=== PATIENT | male | born 1960 | race African-American/Black ===

== ENCOUNTER 2016-04-30 23:37 | Inpatient (IN) | payer OTHER ==
--- NOTE | ~2016-04-30 | DS ---
Unit #: [id number] #: [id number] Patient: ADAM JEFFRIES [id number] [facility] [address] [place] [address] [id number] I MR#: [id number] NAME: ADAM JEFFRIES ROOM: [facility] Age: 56 Sex: M Admission Date: 04/30/2016 : 1960 Discharge Date: 05/02/2016 Attending Physician: Martin Rivas M.D. Primary Care Physician: Deonte Donis M.D. DISCHARGE SUMMARY REASON FOR ADMISSION Detox. DIAGNOSTIC STUDIES LABORATORY RESULTS: Urine drug screen positive for benzodiazepine, cocaine, and TCA. HOSPITAL COURSE The patient was admitted to inpatient unit on 04/30/2016 and discharged on 05/02/2016. The patient was treated on the inpatient unit with group therapy, individual therapy, and medication management; responded well with the above modalities of treatment. Subsequently, the patient was discharged with a plan to follow up in outpatient program. DISCHARGE MEDICATIONS Seroquel 200 mg at bedtime for mood stabilization. DISCHARGE DIAGNOSES Psychiatric: 1. Mood disorder, not otherwise specified. 2. Alcohol use disorder, severe. 3. Cocaine use disorder, severe, F14.20. 4. Sedative-hypnotic use disorder, F13.20. Secondary diagnosis: Deferred. Medical diagnosis: None. Stressors: Psychosocial stressors. DISCHARGE INSTRUCTIONS The patient is to follow up in outpatient clinic as per director social service. CONDITION ON DISCHARGE The patient was pleasant and cooperative. Denied any psychotic symptom or any suicidal ideation. PROGNOSIS Guarded. DIET AND ACTIVITY As tolerated. Unit #: [id number] #: [id number] Patient: ADAM JEFFRIES Dictated by... Shy Martin/israel TD: 05/02/2016 19:32 JOB #: [id number] DISCHARGE SUMMARY X Martin Rivas MD X DISCHARGE SUMMARY
--- NOTE | ~2016-04-30 | HP ---
Unit #: [id number] #: [id number] Patient: ADAM JEFFRIES [id number] [facility] [address] [place] [address] [id number] MR#: [id number] NAME: ADAM JEFFRIES ROOM: P132 Age: 56 Sex: M Admission Date: 04/30/2016 : 1960 Attending Physician: Martin Rivas M.D. Admitting Physician: Martin Rivas M.D. Primary Care Physician: Deonte Donis M.D. HISTORY AND PHYSICAL HISTORY OF PRESENT ILLNESS Adam is a 56 year old admitted to [address] [place] [address] because of his continued polysubstance abuse which includes cocaine and alcohol. PAST MEDICAL HISTORY 1. Long history of polysubstance abuse. 2. High blood pressure. PAST SURGICAL HISTORY Nothing reported. ALLERGIES No known drug allergies. SOCIAL HISTORY Smokes less than 1 pack per day. Drinks up to a fifth of liquor on a daily basis and admits to history of illicit drug use. FAMILY HISTORY Medically noncontributory. REVIEW OF SYSTEMS CONSTITUTIONAL: No fever or chills. HEENT: Denies any sore throat, ear pain or runny nose. CARDIOVASCULAR: Denies chest pain, irregular heart rhythm or palpitations. CHEST: Denies shortness of breath or cough. No hemoptysis. GASTROINTESTINAL: Denies nausea, vomiting, diarrhea or chronic constipation. ENDOCRINE: Denies history of increased thirst or urination. No recent significant weight loss or gain. GENITOURINARY: Denies dysuria, frequency, or hematuria. SKIN: Denies any rashes. HEMATOLOGIC: Denies history of increased bleeding or bruising. MUSCULOSKELETAL: Denies any hot, swollen joints. No generalized muscle pain. NEUROLOGIC: Denies problems with vision or speech. No frequent, severe headaches. No numbness, tingling or weakness in any extremities. Denies loss of bladder or bowel control. CURRENT MEDICATIONS 1. Seroquel 200 mg q.h.s. 2. Nicotine patch 14 mg daily. 3. HCTZ 25 mg daily. Unit #: [id number] #: [id number] Patient: ADAM JEFFRIES 4. Zestril 20 mg daily. 5. Norvasc 10 mg daily. 6. Milk of Magnesia p.r.n. 7. Maalox p.r.n. 8. Tylenol p.r.n. PHYSICAL EXAMINATION GENERAL: Alert, thin, in no apparent distress. VITAL SIGNS: Blood pressure 132/82, heart rate 82, respirations 16, temperature 98.6. WEIGHT: 150. HEIGHT: 5 feet 11 inches. SKIN: Warm and dry without rash or lesion. HEENT: Normocephalic. TMs not viewed. Oral and nasal passages clear. Conjunctivae clear. PERRLA. EOMs intact. NECK: Supple without lymphadenopathy or thyromegaly. HEART: Regular rate and rhythm without murmur. LUNGS: Clear. ABDOMEN: Soft, nontender. : Not done. EXTREMITIES: No evidence of cyanosis, clubbing or edema. Moves all without focal deficit. NEUROLOGICAL: Grossly within normal limits. Cranial Nerves: II: Visual atkins are intact. III, IV AND : Extraocular movements are intact. Pupils are equal, round and reactive to light. V: Facial sensation is grossly normal. VII: Facial movements and expression are normal. VIII: Auditory acuity grossly intact. IX, X: Uvula is midline. Phonation is normal. XI: Patient shrugs shoulders and turns head normally. XII: Tongue protrudes in the midline. Sensory and Motor Function: Sensory and motor sensation is grossly normal. Motor: moves all extremities well. Coordination: Gait is normal. Deep Tendon Reflexes: Intact. IMPRESSION Psychiatric admission. RECOMMENDATIONS PSYCHIATRIC: Per psychiatrist. MEDICAL: See no contraindications to participate in facility's activities. MEDICAL PROGNOSIS Good. MEDICAL CONDITION Stable. Dictated by... Ernestina Durbin P.A.-C. for Shy Lewis/amber TD: 05/01/2016 20:04 JOB #: [id number] Unit #: [id number] #: [id number] Patient: ADAM JEFFRIES HISTORY AND PHYSICAL X Ernestina Durbin HISTORY AND PHYSICAL
--- NOTE | ~2016-04-30 | PA ---
Unit #: [id number] #: [id number] Patient: ADAM JEFFRIES [id number] [facility] [address] [place] [address] [id number] I MR#: [id number] NAME: ADAM JEFFRIES ROOM: 32 Age: 56 Sex: M Admission Date: 04/30/2016 : 1960 Date of Assessment: 04/30/2016 Attending Physician: Martin Rivas M.D. Admitting Physician: Martin Rivas M.D. Primary Care Physician: Deonte Donis M.D. PSYCHIATRIC ASSESSMENT INFORMANT(S) Patient, reliability fair. Chart, reliability good. CHIEF COMPLAINT Needing detox, hearing voices to kill myself. HISTORY OF PRESENT ILLNESS Mr. Adam Jeffries is a 56-year-old male seen on . The patient was admitted with depressive symptom, alcohol abuse, and cocaine abuse. The patient reported suicidal ideation with a plan, psychotic symptom. The patient reported current suicidal ideation with a plan to overdose on alcohol 106 and injured his head. The patient reported command hallucination telling him to kill himself. The patient reported current alcohol and crack use. Most recent was 04/30/2016. The patient reported relapsing approximately 8 months ago from alcohol. The patient currently drinking 4 ounces of beer daily. The patient reported strained relationship with family member due to substance abuse. The patient has been displaced from house and legal charges due to substance abuse. The patient currently denied any homicidal ideation. Reported increase in agitation with other individuals who do not respect him. The patient needing inpatient admission at this time for (1) ___ reason for psychiatric stabilization. PAST PSYCHIATRIC HISTORY Remarkable for history of previous treatment, inpatient in [place] for chemical dependency in 1999 and 2004; inpatient [facility] 05/2015 and 08/2015 for chemical dependency and suicidal ideation. FAMILY HISTORY No history of any psychiatric illness in the family known at this time. No known history of any abuse. MEDICAL HISTORY Remarkable for hypertension. MEDICATION HISTORY The patient is on lisinopril, Seroquel. ALLERGIES No known drug allergies. SUBSTANCE ABUSE HISTORY The patient reported tobacco use, age of onset 9; alcohol, age of onset 10; crack cocaine, age of onset 29; opiate, age of onset 24; prescription Unit #: [id number] #: [id number] Patient: ADAM JEFFRIES, age of onset 55. The patient reported history of blackout but no history of any IV drug use. No history of any HIV or hepatitis. The patient reported depressed mood, headache, irritability, restlessness, rhinorrhea, sleep problem, or tremors. REVIEW OF SYSTEMS HEENT: Eyes: Clear. Ears, Nose, Mouth, and Throat: Clear. CARDIOVASCULAR/RESPIRATORY: Unremarkable. GI/: Unremarkable. SKIN/LYMPH NODE/NEUROLOGICAL/ENDOCRINE/HEMATOLOGICAL/ALLERGIC/IMMUNOLOGICAL: Unremarkable. MUSCULOSKELETAL: Muscle strength and tone: No atrophy or abnormal movement. Gait normal. MENTAL STATUS EXAMINATION Constitutional: Measurement of vital signs: 97.9, 82, 16, 133/82. Height 5 feet 11 inches. Weight 150 pounds. General Appearance: The patient dressed casually. The patient did not show any facial deformity. Musculoskeletal: Please see above. Psychiatric examination: Description of speech: Regular rate, normal volume. Description of thought process: Goal-directed. Description of association: Intact. Description of abnormal psychotic thinking: The patient denied any hallucination, delusions. Mood lability, substance abuse. Description of the patient's judgment: Concerning everyday activity, poor; social situation, poor; concerning psychiatric condition, poor. The patient currently having suicidal ideation, substance abuse, and hallucination. Complete Mental Status Examination: Oriented in time, place, and person. Recent and remote memory fair. Attention span, concentration fair. Language: Able to name object, repeat phrases. Fund of knowledge: Aware of current events and past history. Vocabulary: Intact. Mood and affect: Sad, dysphoric. Insight and judgment: Fair to poor. ASSETS AND LIABILITIES Assets: The patient articulate. Able to take care of his ADL. Liabilities: History of substance abuse and depression. ADMITTING DIAGNOSES PSYCHIATRIC: Mood disorder, not otherwise specified, F32.9. Alcohol use disorder, severe, F10.20 SECONDARY: Deferred. MEDICAL: Hypertension. STRESSOR: Psychosocial stressor. PSYCHIATRIC PLAN/TREATMENT GOALS/DISCHARGE PLANNING 1. Advised to admit the patient on the inpatient unit. Provide safe, supportive, structured environment. 2. Ordered labs: CBC, CMP, UA, UDS. 3. Advised for the patient to be monitored closely for SP1 precaution and special observation for psychosis. The patient to start with detox protocol, detox monitoring, resume his medication. The patient is on Seroquel 200 mg at bedtime, Vistaril 10 to 20 mg daily, and Norvasc 10 mg daily. The patient to attend all the programming on the inpatient unit including group therapy, individual therapy, psychotherapy if possible. Unit #: [id number] #: [id number] Patient: ADAM JEFFRIES 4. Treatment goal: To attain euthymic mood, gain insight into his problem, learn coping skill. 5. Discharge plan: Plan to stabilize the patient and consider followup in outpatient program. ESTIMATED LENGTH OF STAY 5 days. Dictated by... Shy Martin/herman TD: 05/02/2016 09:31 JOB #: [id number] PSYCHIATRIC ASSESSMENT X Martin Rivas MD X PSYCHIATRIC ASSESSMENT
--- NOTE | ~2016-04-30 | PN ---
Unit #: [id number] #: [id number] Patient: ADAM JEFFRIES [id number] [facility] [address] [place] [address] [id number] I MR#: [id number] NAME: ADAM JEFFRIES ROOM: 32 Age: 56 Sex: M Admission Date: 04/30/2016 : 1960 Attending Physician: Martin Rivas M.D. Admitting Physician: Martin Rivas M.D. Primary Care Physician: Deonte Donis M.D. [facility] PROGRESS NOTES DATE 05/01/2016 DISCUSSION Mr. Adam Jeffries is a 56-year-old male, seen on 05/01/2016. The patient interviewed, chart reviewed, and obtained information from the nursing staff. The patient was compliant and cooperative. Mood sad and dysphoric, flat affect, and guarded. The patient continues to be isolative, guarded. VITAL SIGNS: Temperature 97.6, pulse 82, respirations 16, and blood pressure 171/113. REVIEW OF SYSTEMS Complete review of systems unremarkable. MENTAL STATUS EXAMINATION General appearance: Patient casually dressed. Attention span and concentration, fair. Oriented, place and person. Mood and affect, sad and dysphoric. Speech, monotone. Thought process, concrete. Association, the patient reported having thoughts of harming self and paranoia, withdrawn, isolative. Recent and remote memory, poor. Insight and judgment, poor. DIAGNOSES 1. Mood disorder, NOS. 2. Alcohol use disorder, severe. ASSESSMENT/PLAN Advised to continue with the current medication and therapeutic protocol and if needed consider further adjustment of medication. Dictated by... Shy Martin/lety TD: 05/02/2016 09:54 JOB #: [id number] Unit #: [id number] #: [id number] Patient: ADAM JEFFRIES PROGRESS NOTES X Martin Rivas MD PROGRESS NOTE
[2016-05-01 09:39] LABS: BASOPHIL# 0.1 X10e3 (0-0.3); BASOPHIL% 0.9 % (0-2.5); EOSINOPHIL# 0.2 X10e3 (0-0.7); EOSINOPHIL% 1.9 % (0.0-7.0); HEMATOCRIT 40.1 % (38.0-50.0); HEMOGLOBIN 13.1 gm/dL (13.0-16.0); LYMPHOCYTE% 25.4 % (17.0-45.0); MEAN CELL VOLUME 98.2 FL (83-96); MEAN CORPUSCULAR HEMOGLOBIN 32.1 PG (28-34); MEAN CORPUSCULAR HGB CONC 32.7 g/dL (30-36); MEAN PLATELET VOLUME 7.9 FL (6.5-11.5); MONOCYTE# 0.6 X10e3 (0-1.0); MONOCYTE% 7.6 % (3.0-12.0); NEUTROPHIL# 5.1 X10e3 (1.5-7.1); NEUTROPHIL% 64.2 % (40-75); PLATELET COUNT 244 X10e3 (140-420); RED BLOOD COUNT 4.08 X10e (3.90-5.60)
[2016-05-01 09:47] LABS: ALBUMIN SERUM 3.9 g/dL (3.5-5.0); ALKALINE PHOSPHATASE 73 U/L (32-92); ALT (SGPT) 14 U/L (10-40); AST (SGOT) 20 U/L (10-42); BILIRUBIN,TOTAL 0.5 mg/dL (0.2-2.0); BLOOD UREA NITROGEN 15 mg/dL (9-23); BUN/CREATININE RATIO 11.53; CALCIUM SERUM 9.7 mg/dL (8.4-10.2); CARBON DIOXIDE 31 mmol/L (22-31); CHLORIDE 102 mmol/L (100-111); CREATININE SERUM 1.3 mg/dL (0.6-1.4); GLOM FILT RATE Estimated ABOVE60 mL/min (>60); GLUCOSE FASTING 93 mg/dL (70-110); POTASSIUM 4.2 mmol/L (3.5-5.1); PROTEIN TOTAL SERUM 6.5 g/dL (6.0-8.3); SODIUM 141 mmol/L (135-145)
[2016-05-01 09:48] LABS: DIFF IND NO
== END 2016-05-02 12:40 | disposition home or self-care (01) | DRG 885 ==
LOC: P1S 23:37
PROVIDERS: Psychiatry & Neurology Psychiatry
PROC: HZ2ZZZZ Detoxification Services for Substance Abuse Treatment (ICD-10-PCS; principal; 2016-04-30)
DX: F39 Unspecified mood [affective] disorder (principal); I10 Essential (primary) hypertension; F10.20 Alcohol dependence, uncomplicated
CPT/HCPCS: 80053; 85025

== ENCOUNTER 2016-08-03 09:00 | Inpatient (IN) | payer OTHER ==
--- NOTE | ~2016-08-03 | PN ---
Unit #: [id number] #: [id number] Patient: ADAM JEFFRIES [id number] [facility] [address] [place] [address] [id number] I MR#: [id number] NAME: ADAM JEFFRIES ROOM: P1 Age: 56 Sex: M Admission Date: 08/04/2016 : 1960 Attending Physician: Martin Rivas M.D. Admitting Physician: Martin Rivas M.D. Primary Care Physician: Shy Ford PROGRESS NOTES DATE OF SERVICE: 08/05/2016 DISCUSSION Mr. Adam Jeffries is a 56-year-old male, seen on 08/05/2016. The patient interviewed, chart reviewed, and obtained information from nursing staff. The patient is currently on detox protocol, detox monitoring, withdrawn, isolative, flat affect, sad, dysphoric mood. The patient's vital signs are temperature 98.0, pulse 76, respiratory rate 16, blood pressure 155/108. REVIEW OF SYSTEMS Complete review of systems unremarkable. MENTAL STATUS EXAMINATION General appearance, the patient dressed casually. Attention span and concentration, fair. Oriented in place and person. Mood and affect, sad and depressed. The patient reported having suicidal ideation and hallucination. Recent and remote memory, poor. Insight and judgment, poor. DIAGNOSES 1. Alcohol use disorder, severe. 2. Cocaine use disorder, severe. 3. Mood disorder, not otherwise specified. ASSESSMENT/PLAN Advised to continue with current medication and therapeutic protocol. If needed, consider further adjustment of medication. Dictated by... Shy Martin/israel TD: 08/05/2016 23:31 JOB #: [id number] Unit #: [id number] #: [id number] Patient: ADAM JEFFRIES PROGRESS NOTES Page 1 of 1 X Martin Rivas MD PROGRESS NOTE
--- NOTE | ~2016-08-03 | PN ---
Unit #: [id number] #: [id number] Patient: ADAM JEFFRIES [id number] [facility] [address] [place] [address] [id number] I MR#: [id number] NAME: ADAM JEFFRIES ROOM: P178 Age: 56 Sex: M Admission Date: 08/04/2016 : 1960 Attending Physician: Martin Rivas M.D. Admitting Physician: Martin Rivas M.D. Primary Care Physician: Shy Ford PROGRESS NOTES DATE OF SERVICE: 08/06/2016 DISCUSSION Adam Jeffries is a 56-year-old male, seen on 08/06/2016. The patient interviewed, chart reviewed, and obtained information from nursing staff. The patient reports that he is still having suicidal ideation, sad, depressed, withdrawn, having trouble sleeping, unable to contract for safety today. REVIEW OF SYSTEMS Complete review of systems unremarkable. MENTAL STATUS EXAMINATION General appearance, the patient dressed casually. Attention span and concentration, fair. Oriented in place and person. Mood and affect, sad and depressed. Speech, monotone. Thought process, concrete. The patient reported having passive SI, unable to contract for safety. Denied any homicidal ideation. Recent and remote memory, poor. Insight and judgment, poor. DIAGNOSES Major depressive disorder, recurrent, severe and alcohol use disorder, severe. ASSESSMENT AND PLAN Advised to continue with current medication with a plan to add trazodone 100 mg at bedtime. If needed, consider further adjustment of medication. Dictated by... Shy Martin/israel TD: 08/06/2016 19:56 JOB #: [id number] Unit #: [id number] #: [id number] Patient: ADAM JEFFRIES PROGRESS NOTES Page 1 of 1 X Martin Rivas MD PROGRESS NOTE
--- NOTE | ~2016-08-03 | DS ---
Unit #: [id number] #: [id number] Patient: ADAM JEFFRIES [id number] [facility] [address] [place] [address] [id number] MR#: [id number] NAME: ADAM JEFFRIES ROOM: [facility] Age: 56 Sex: M Admission Date: 08/04/2016 : 1960 Discharge Date: 08/08/2016 Attending Physician: Martin Rivas M.D. Primary Care Physician: Deonte Donis M.D. DISCHARGE SUMMARY REASON FOR ADMISSION Suicidal ideation. DIAGNOSTIC STUDIES LABORATORY RESULTS: Remarkable for creatinine 1.7 and potassium 3.3. HOSPITAL COURSE The patient was admitted to inpatient unit on 08/04/2016 and discharged on 08/08/2016. The patient was treated on the inpatient unit with chemical dependency group, expressive therapy, and structured milieu. The patient was med compliant, also seen by the medical doctor. For abnormal labs, the patient showed improvement. Subsequently, the patient was discharged with a plan to follow up in outpatient program. DISCHARGE MEDICATIONS Seroquel 200 mg at bedtime for mood stabilization, Desyrel 100 mg at bedtime for sleep, Oretic 25 mg at bedtime for hypertension, Zestril 20 mg daily for hypertension, and Mobic 7.5 mg daily for pain. DISCHARGE DIAGNOSES Psychiatric: Major depressive disorder, recurrent, severe, F33.2; psychosis, not otherwise specified, F29.0; alcohol use disorder, F10.20; cocaine use disorder, severe, F14.20. Secondary diagnosis: Deferred. Medical diagnosis: Hypertension. Stressors: Psychosocial stressors. DISCHARGE INSTRUCTIONS The patient to follow up in outpatient clinic as per social media developer. CONDITION ON DISCHARGE The patient was pleasant and cooperative. Denied any psychotic symptom or any suicidal ideation. PROGNOSIS Guarded. DIET AND ACTIVITY As tolerated. Unit #: [id number] #: [id number] Patient: ADAM JEFFRIES Dictated by... Shy Martin/israel TD: 08/08/2016 16:27 JOB #: [id number] DISCHARGE SUMMARY Page 1 of 1 X Martin Rivas MD X DISCHARGE SUMMARY
--- NOTE | ~2016-08-03 | PN ---
Unit #: [id number] #: [id number] Patient: ADAM JEFFRIES [id number] [facility] [address] [place] [address] [id number] I MR#: [id number] NAME: ADAM JEFFRIES ROOM: P178 Age: 56 Sex: M Admission Date: 08/04/2016 : 1960 Attending Physician: Martin Rivas M.D. Admitting Physician: Martin Rivas M.D. Primary Care Physician: Deonte Donis M.D. [facility] PROGRESS NOTES DATE 08/07/2016 DISCUSSION Mr. Adam Jeffries is a 56-year-old male seen on 08/07/2016. Patient interviewed. Chart reviewed. Obtained information from nursing staff. Patient was compliant, cooperative. Mood was sad, dysphoric, flat affect, guarded. Patient denied any thoughts of harming self or others. Vital signs stable. Complete review of system unremarkable. MENTAL STATUS EXAMINATION General appearance, patient dressed casually. Attention span, concentration fair. Oriented in place and person. Mood and affect labile. Speech monotone. Thought process concrete. Patient denied any thoughts of harming self or others but guarded. Recent and remote memory poor. Insight and judgement poor. DIAGNOSES 1. Mood disorder NOS. 2. Alcohol use disorder, severe. 3. Cocaine use disorder, severe. ASSESSMENT/PLAN Advised to continue with current medication and therapeutic protocol. If needed, consider further adjustment of medication. Dictated by... Shy Martin/amber TD: 08/08/2016 16:34 JOB #: [id number] Unit #: [id number] #: [id number] Patient: ADAM JEFFRIES PROGRESS NOTES Page 1 of 1 X Martin Rivas MD X PROGRESS NOTE
--- NOTE | ~2016-08-03 | CO ---
Unit #: [id number] #: [id number] Patient: ADAM JEFFRIES [id number] [place] [address] [id number] I MR#: [id number] NAME: ADAM JEFFRIES ROOM: [facility] Age: 56 Sex: M Admission Date: 08/04/2016 : 1960 Attending Physician: Martin Rivas M.D. Primary Care Physician: Deonte Donis M.D. Consultation Date: 08/04/2016 CONSULTATION REPORT HISTORY OF PRESENT ILLNESS Adam has a history of hypertension and he reports he has not been taking his medications as prescribed at home. He is supposed to be taking Norvasc 10 mg daily and lisinopril/hydrochlorothiazide 20/25 mg daily, but he cannot recall the last time when he used either of these medications. Here, his blood pressures have been 172/108 and 149/102. He denies any headache or chest pain. PHYSICAL EXAMINATION CARDIAC: Regular rate and rhythm. No murmur, gallop, or rub. RESPIRATORY: Clear to auscultation bilaterally. ASSESSMENT AND PLAN Hypertension. We will begin Norvasc 5 mg p.o. daily and lisinopril/hydrochlorothiazide 10/12.5 mg p.o. daily, and add clonidine 0.1 mg p.o. q.12 hours p.r.n. He has a history of cocaine use and because of this, we will start his blood pressure medications back at a low dose and increase as needed. Please notify if blood pressures are consistently greater than 140/90 prior to clonidine. Dictated by... Zohaib Mohan/israel TD: 08/04/2016 17:16 JOB #: [id number] CONSULTATION REPORT Page 1 of 1 X PRATEEK JONES APRN CONSULTATION REPORT
--- NOTE | ~2016-08-03 | HP ---
Unit #: [id number] #: [id number] Patient: ADAM JEFFRIES [id number] [facility] [address] [place] [address] [id number] MR#: [id number] NAME: ADAM JEFFRIES ROOM: P178 Age: 56 Sex: M Admission Date: 08/04/2016 : 1960 Attending Physician: Martin Rivas M.D. Admitting Physician: Martin Rivas M.D. Primary Care Physician: Deonte Donis M.D. HISTORY AND PHYSICAL HISTORY OF PRESENT ILLNESS Adam is a 56-year-old male admitted on 08/04/2016 to [facility] for detox from alcohol. He also was positive for cocaine. PAST MEDICAL HISTORY Hypertension. He is ( injury that required surgical repair after a fall. SOCIAL HISTORY He smokes five to six cigarettes daily, binge alcohol use, denies illegal drug use, but was positive for cocaine. He is currently single and homeless. FAMILY HISTORY . ALLERGIES No known drug allergies. PHYSICAL EXAMINATION GENERAL: Alert, oriented, in no acute distress. VITAL SIGNS: Blood pressure 172/108, heart rate 91, temperature 98.0. HEIGHT: 5 foot 2 inches. SKIN: Warm and dry without rash or lesion. HEENT: Normocephalic. TMs not viewed. Oral and nasal passages clear. Conjunctivae clear. PERRLA. EOMs intact. NECK: Supple without lymphadenopathy or thyromegaly. HEART: Regular rate and rhythm without murmur. LUNGS: Clear. ABDOMEN: Soft, nontender, without masses or hepatosplenomegaly. : Not done. EXTREMITIES: No evidence of cyanosis, clubbing or edema. Moves all without focal deficit. NEUROLOGICAL: Grossly within normal limits. Cranial Nerves: II: Visual atkins are intact. III, IV AND : Extraocular movements are intact. Pupils are equal, round and reactive to light. V: Facial sensation is grossly normal. VII: Facial movements and expression are normal. VIII: Auditory acuity grossly intact. IX, X: Uvula is midline. Phonation is normal. XI: Patient shrugs shoulders and turns head normally. XII: Tongue protrudes in the midline. Sensory and Motor Function: Sensory and motor sensation is grossly normal. Motor: moves all extremities well. Unit #: [id number] #: [id number] Patient: ADAM JEFFRIES Coordination: Gait is normal. Deep Tendon Reflexes: Intact. CURRENT MEDICATIONS Amlodipine and lisinopril/HCTZ. IMPRESSION 1. Psychiatric admission. 2. Hypertension. RECOMMENDATIONS Psychiatric, per psychiatrist. MEDICAL: I see no contraindications to participating in facility's activities. MEDICAL PROGNOSIS Good. MEDICAL CONDITION Stable. Dictated by... Zohaib Mohan/jen TD: 08/05/2016 00:54 JOB #: [id number] HISTORY AND PHYSICAL Page 1 of 1 X PRATEEK JONES APRN X HISTORY AND PHYSICAL
--- NOTE | ~2016-08-03 | PA ---
Unit #: [id number] #: [id number] Patient: ADAM JEFFRIES [id number] [facility] [address] [place] [address] [id number] MR#: [id number] NAME: ADAM JEFFRIES ROOM: [facility] Age: 56 Sex: M Admission Date: 08/04/2016 : 1960 Date of Assessment: Attending Physician: Martin Rivas M.D. Admitting Physician: Martin Rivas M.D. Primary Care Physician: Deonte Donis M.D. PSYCHIATRIC ASSESSMENT INFORMANTS The patient's reliability, fair; chart reliability, good. CHIEF COMPLAINT Suicidal ideation. HISTORY OF PRESENT ILLNESS Mr. Adam Jeffries is a 56-year-old male, presented with the above-mentioned complaint. The patient reported that he tried to drink himself to by drinking 12 16-ounce beers of malt liquor, 2 pills of Seroquel 200, using 2 to 3 g of cocaine. The patient reported hearing voices are telling him that he is not good to kill himself. The patient currently unemployed, reports that he is staying in a custodial house since 01/2016 and reports being asked to leave the custodial house to detox from relapse substances. The patient reports currently homeless, poor support system, sleeping 5 hours, appetite poor, feeling of hopelessness, worthlessness, suicidal ideation. The patient denied any homicidal ideation. The patient has a history of previous treatment at [facility] [address] in 2015, inpatient at [facility] in 2016. Needing inpatient admission at this time for psychiatric stabilization. PAST PSYCHIATRIC HISTORY Remarkable for history of previous treatment inpatient in [place] for chemical dependency, inpatient twice at [facility] in 2015, inpatient at [facility] in 04/2016. FAMILY HISTORY AND SOCIAL HISTORY Poor support system, currently homeless. No history of abuse. No history of any legal charges. MEDICAL HISTORY Remarkable for history of hypertension. Musculoskeletal; muscle strength and tone, no atrophy or abnormal movement. Gait normal. MEDICATION HISTORY None. ALLERGIES No known drug allergies. SUBSTANCE ABUSE HISTORY The patient reported tobacco use, age of onset 9; alcohol, age of onset 10; cannabis abuse, age of onset 10; crack cocaine, age of onset 29. The Unit #: [id number] #: [id number] Patient: ADAM JEFFRIES patient reported longest period of sobriety 8 months, last period of sobriety 04/2016. The patient reported history of blackouts. No history of any HIV, hepatitis, or IV drug use. Reported currently depressed mood, headache, irritability, restlessness, rhinorrhea, sleep problem, tremor. REVIEW OF SYSTEMS HEENT: Eyes, clear. Ears, nose, mouth, and throat; clear. CARDIOVASCULAR: Unremarkable. RESPIRATORY: Unremarkable. GI: Unremarkable. : Unremarkable. SKIN: Unremarkable. LYMPH NODE: Unremarkable. NEUROLOGIC: Unremarkable. ENDOCRINE: Unremarkable. HEMATOLOGIC: Unremarkable. ALLERGIC/IMMUNOLOGIC: Unremarkable. MUSCULOSKELETAL: Muscle strength and tone, no atrophy or abnormal movement. Gait normal. MENTAL STATUS EXAMINATION CONSTITUTIONAL: Measurement of vital signs; temperature 98, pulse 76, respirations 16, oxygen saturation 100%, blood pressure 155/108. Height 5 feet 10 inches, weight 150 pounds. GENERAL APPEARANCE: The patient dressed casually. The patient did not show any facial deformity. MUSCULOSKELETAL: Please see above. PSYCHIATRIC EXAMINATION Description of speech; regular rate, normal volume, normal articulation, coherent. Description of thought process, goal directed. Description of association, intact. Description of abnormal psychotic thinking; the patient denied any hallucination or delusions, suicidal ideation. Denied any homicidal ideation. Psychotic symptom as mentioned above. Description of the patient's judgment; concerning everyday activity, poor. Social situation, poor. Concerning psychiatric condition, poor. Complete mental status examination; oriented in time, place, and person. Recent and remote memory, fair. Attention span and concentration, fair. Language, able to name object and repeat phrases. Fund of knowledge, aware of current event and passive vocabulary intact. Mood and affect, sad and dysphoric. Insight and judgment, fair to poor. ASSETS AND LIABILITIES Assets; the patient articulate, able to take care of his ADL. Liability; history of depression, substance abuse. ADMITTING DIAGNOSES Psychiatric: Major depressive disorder, recurrent, severe, F33.2; psychosis, not otherwise specified, F29.0; alcohol use disorder, severe, F10.20; cocaine use disorder, severe, F14.20. Secondary diagnosis: Deferred. Medical diagnosis: Hypertension. Stressors: Psychosocial stressors. Unit #: [id number] #: [id number] Patient: ADAM JEFFRIES PSYCHIATRIC PLAN AND TREATMENT GOAL 1. Advised to admit the patient on the inpatient unit. Provide safe, supportive, and structured environment. 2. Ordered labs; CBC, CMP, UA, and UDS. 3. Advised to resume home medication. 4. The patient to attend all the programing with group therapy, individual therapy, medication management, chemical dependency group. Treatment goal to attain euthymic mood, gain insight into his problem, and learn coping skills. Also the patient was started on detox protocol, detox monitoring, SP1 precaution. DISCHARGE PLAN Plan to stabilize the patient and consider followup in outpatient program. ESTIMATED LENGTH OF STAY 5 days. Dictated by... Martin Rivas M.D. JOSÉ LUIS/israel TD: 08/05/2016 23:04 JOB #: [id number] PSYCHIATRIC ASSESSMENT Page 1 of 1 X Martin Rivas MD X PSYCHIATRIC ASSESSMENT
== END 2016-08-08 09:46 | disposition home or self-care (01) | DRG 885 ==
LOC: P1E 08-04 13:36
PROC: HZ2ZZZZ Detoxification Services for Substance Abuse Treatment (ICD-10-PCS; principal; 2016-08-04)
DX: F33.2 Major depressive disorder, recurrent severe without psychotic features (principal); F14.20 Cocaine dependence, uncomplicated; F10.20 Alcohol dependence, uncomplicated; F39 Unspecified mood [affective] disorder; Y90.0 Blood alcohol level of less than 20 mg/100 ml

== ENCOUNTER 2016-08-03 11:12 | Emergency (ER) | payer OTHER ==
--- NOTE | ~2016-08-03 | EKG ---
PATIENT: ADAM JEFFRIES UNIT #: [id number] Ventricular Rate: 82 BPM Atrial Rate: 82 BPM P-R Interval: 150 ms QRS Duration: 76 ms Q-T Interval: 378 ms QTC Calculation(Bezet): 441 ms P [place]: 62 degrees Calculated R [place]: 9 degrees Calculated T [place]: -30 degrees Diagnosis Line: Normal sinus rhythm Diagnosis Line: Normal ECG Diagnosis Line: When compared with ECG of 15-SEP-2015 09:52, Diagnosis Line: Nonspecific T wave abnormality no longer evident Diagnosis Line: in Lateral leads Diagnosis Line: Confirmed by ELI OHARA MD ([id number]) on Diagnosis Line: 08/04/2016 11:07:57 AM INTERPRETING MD: LAURA
[2016-08-03 13:23] LABS: ALBUMIN SERUM 4.5 g/dL (3.5-5.0); ALKALINE PHOSPHATASE 88 U/L (32-92); ALT (SGPT) 15 U/L (10-40); AST (SGOT) 23 U/L (10-42); BILIRUBIN, DIRECT 0.1 mg/dL (0.0-0.2); BILIRUBIN,INDIRECT 0.9 mg/dL (0.0-0.9); BLOOD UREA NITROGEN 19 mg/dL (9-23); BUN/CREATININE RATIO 11.17; CARBON DIOXIDE 27 mmol/L (22-31); CHLORIDE 99 mmol/L (100-111); CREATININE SERUM 1.7 mg/dL (0.6-1.4); GLOM FILT RATE Estimated 51.5 mL/min (>60); GLUCOSE FASTING 80 mg/dL (70-110); POTASSIUM 3.3 mmol/L (3.5-5.1); PROTEIN TOTAL SERUM 7.9 g/dL (6.0-8.3); SALICYLATE <4.0 mg/dL; SODIUM 135 mmol/L (135-145)
[2016-08-03 13:25] LABS: ACETAMINOPHEN <10 ug/mL; ALCOHOL BLOOD <5 mg/dL (0)
[2016-08-03 15:27] LABS: AMPHETAMINE NEG (NEG); BARBITURATES NEG (NEG); BENZODIAZEPINES NEG (NEG); COCAINE POS (NEG); MARIJUANA NEG (NEG); OPIATES NEG (NEG); TRICYCLIC ANTIDEPRESSANTS POS (NEG); U METHADONE NEG (NEG)
== END 2016-08-04 12:50 ==
LOC: CED 11:12
PROVIDERS: Emergency Medicine
DX: T43.592A Poisoning by other antipsychotics and neuroleptics, intentional self-harm, initial encounter (principal); F17.200 Nicotine dependence, unspecified, uncomplicated; Y92.89 Other specified places as the place of occurrence of the external cause
CPT/HCPCS: 36415; 80048; 80076; 80307; 93005; 96361; 96374; 99285; G0480